=== PATIENT | male | born 1970 | race Two or more races ===

== ENCOUNTER 2020-07-23 17:24 | Emergency (ER) | payer BC, OTHER ==
[~2020-07-23] VITALS: Ht 167.6 cm; Wt 104.3 kg
[2020-07-23 18:40] LABS: Red Cell Distribution Width 13.9 % (11.8-14.3)
[2020-07-23 18:46] LABS: Hematocrit 43.4 % (41.0-53.0); Hemoglobin 14.8 g/dL (13.5-17.5); Mean Corpuscular Hemoglobin 28.7 pg (28.0-32.0); Mean Corpuscular Hgb Conc. 34.1 g/dL (32.0-36.0); Mean Corpuscular Volume 84.3 fL (80.0-100.0); Platelet Count (auto) 434 10^3/uL (140-450); Red Blood Cells 5.15 10^6/uL (4.5-5.90); White Blood Cell 11.8 10^3/uL (4.4-10.8)
[2020-07-23 18:48] LABS: Basophils % (manual) 0 (0.0-2.0); Blast Cells 0; Eosinophils % (manual) 0 (0-7); Metamyelocytes % 0; Myelocytes % 0; Promyelocytes % 0; Reactive Lymphocytes 0
[2020-07-23 18:55] LABS: INR 1.03 (0.9-1.15); Partial Thromboplastin Time 21.7 sec (23.0-31.2)
[2020-07-23 19:00] LABS: Albumin 2.8 g/dL (3.4-5.0); Anion Gap 7 (5-15); Blood Urea Nitrogen 27 mg/dL (7-18); Calcium 8.4 mg/dL (8.5-10.1); Carbon Dioxide 24 mmol/L (21-32); Chloride 109 mmol/L (98-107); Glucose 107 mg/dL (74-106); Sodium 140 mmol/L (136-145)
[2020-07-23 19:05] LABS: Alanine Aminotransferase 35 U/L (16-61); Alkaline Phosphatase 75 U/L (45-117); Aspartate Aminotransferase 13 U/L (15-37); BUN/Creatinine Ratio 32.9; Bilirubin, Total 0.4 mg/dL (0.2-1.0); GFR African American 127 mL/min; GFR Non-African American 105 mL/min; Total Protein 7.4 g/dL (6.4-8.2)
[2020-07-23] MEDS ORDERED: DexAMETHasone SOD PHOS 10MG/1ML VIAL INJ IV ONE (19:15)
[2020-07-23] MEDS ORDERED: AZITHROMYCIN 500MG/ 250ML 250 ML IV ONE (19:15)
[2020-07-23] MEDS ORDERED: ASCORBIC ACID 500 MG TAB PO ONE (19:15)
[2020-07-23 19:22] LABS: Band Neutrophils % (manual) 1; Lymphocytes % (manual) 17 (10.0-50.0); Monocytes % (manual) 3 (0-12)
== END 2020-07-24 00:12 | disposition home or self-care (01) ==
LOC: ER 17:24
DX: U07.1 COVID-19 (principal); J18.9 Pneumonia, unspecified organism
CPT/HCPCS: 36415; 71045; 71275; 80053; 83605; 83735; 84484; 85007; 85027; 85379; 85610; 85730; 87040; 93005; 96365; 96366; 96375; 99285; C9803; J0456; J1100; U0003